=== PATIENT | male | born 1995 | race Caucasian/White ===

== ENCOUNTER 2017-12-13 18:19 | Emergency (ER) | payer OTHER, BC ==
[2017-12-13 18:37] LABS: BASOPHIL (%) 0.6 % (0-1); BASOPHIL COUNT 0.1 K/uL (0-0.1); EOSINOPHIL (%) 1.9 % (0-5); EOSINOPHIL COUNT 0.2 K/uL (0-0.3); HEMATOCRIT 50.2 % (38.0-50.0); HEMOGLOBIN 16.9 G/DL (12.5-16.6); IMMATURE GRANULOCYTE (%) 0.8 % (0.0-0.7); LYMPHOCYTE (%) 18.4 % (15-42); LYMPHOCYTE COUNT 2.2 K/uL (1.0-2.8); MCH 28.3 PG (29.0-34.0); MCHC 33.7 G/DL (30.0-36.0); MCV 83.9 FL (86-99); MONOCYTE (%) 8.7 % (3-12); NEUTROPHIL (%) 69.6 % (45-76); NEUTROPHIL COUNT 8.3 K/uL (1.8-6.4); PLATELET COUNT 329 K/uL (156-360); RBC DIS.WIDTH-CV 14.4 % (11.8-14.6); RBC DIS.WIDTH-SD 43.7 % (39-53); RED BLOOD COUNT 5.98 M/uL (4.00-5.50); WHITE BLOOD COUNT 11.9 K/uL (4.1-10.2)
[2017-12-13 18:48] LABS: AMYLASE 57 IU/L (1-118); CHLORIDE 106 mEq/L (99-109); POTASSIUM 3.8 mEq/L (3.7-5.4); SODIUM 141 mEq/L (136-147)
[2017-12-13 18:50] LABS: GLUCOSE 107 mg/dL (70-99)
[2017-12-13 18:53] LABS: SERUM ETHYL ALCOHOL < 10 mg/dL
[2017-12-13 18:54] LABS: CREATININE 1.2 mg/dL (0.6-1.3); UREA NITROGEN (BUN) 14 mg/dL (9-23)
[2017-12-13 18:55] LABS: GFR ESTIMATE (CALCULATED) > 59 mL/min/ (58.99-99999)
[2017-12-13 19:48] LABS: LIPASE 87 U/L (1.0-51.0)
[2017-12-13] MEDS ORDERED: ULTRAM50 MG PO (21:26)
[2017-12-13] MEDS ORDERED: KEFLEX500 MG PO (21:26)
== END 2017-12-14 00:17 | disposition home or self-care (01) ==
LOC: TRA 18:19
PROVIDERS: Emergency Medicine
DX: S81.011A Laceration without foreign body, right knee, initial encounter (principal); M25.511 Pain in right shoulder; S80.212A Abrasion, left knee, initial encounter; S40.811A Abrasion of right upper arm, initial encounter; S40.812A Abrasion of left upper arm, initial encounter; V28.4XXA Motorcycle driver injured in noncollision transport accident in traffic accident, initial encounter; Z23 Encounter for immunization; K44.9 Diaphragmatic hernia without obstruction or gangrene
CPT/HCPCS: 70450; 71260; 72125; 72129; 72132; 73030; 73560; 74177; 80048; 81003; 82150; 83690; 85025; 86850; 86900; 86901; 99281; 99285; G0480; J2405; J3010